=== PATIENT | female | born 1990 | race Caucasian/White ===

== ENCOUNTER → 2021-05-28 | Outpatient (CLI) | payer BC ==
[2021-05-28 08:15] LABS: BASO % 0 % (0-3); EOS # 0.1 x10^3/uL (0.0-0.7); EOS % 1 % (0-3); HEMOGLOBIN 11.9 g/dL (12.0-15.5); LYMPH # 2.5 x10^3/uL (1.0-4.8); LYMPH % 36 % (24-48); MEAN CORPUSCULAR HEMOGLOBIN 29 pg (25-35); MEAN CORPUSCULAR HGB CONC 34 g/dL (31-37); MEAN CORPUSCULAR VOLUME 87 fL (79-100); MONO # 0.5 x10^3/uL (0.0-1.1); MONO % 8 % (0-9); NEUT # 3.8 x10^3/uL (1.8-7.7); NEUT % 55 % (31-73); PLATELET COUNT 222 x10^3/uL (140-400); RED BLOOD COUNT 4.05 x10^6/uL (3.50-5.40); RED CELL DISTRIBUTION WIDTH 14.7 % (11.5-14.5); WHITE BLOOD COUNT 6.9 x10^3/uL (4.0-11.0)
--- NOTE | 2021-05-28 09:52 | RAD ---
US OB <14 WKS +TV History: Reason: UNSURE DATES / Spl. Instructions: / History: Comparison: None. Technique: Grayscale and color Doppler imaging of the pelvis was performed using transabdominal techn ique. Findings: The uterus measures 16 x 11 x 8 cm. Single acute or gestational sac with regular appearance. Yolk sac is not identified. pole is id entified with crown-rump length 6.4 cm. Adjustment gestational age by ultrasound 12 weeks 5 days. Fet al heart rate 153 bpm. Estimated date of delivery by ultrasound December 05, 2021 Right ovary measures 3.1 x 2.3 x 2.1 cm. Left ovary measures 3.1 x 1.9 x 2.1 cm. Normal Doppler flow to the ovaries bilaterally. No adnexal masses are seen. IMPRESSION: 1. Single intrauterine with gestational age 12 weeks 5 days and heart rate 153 bpm. Recommend routine anatomic screening at 18-22 weeks. Electronically signed by: Issa Scott DO (05/28/2021 9:50 AM) [id number]
[2021-05-29 23:07] LABS: RUBELLA IGG ANTIBODY 0.92 index (Immune >0.99)
== END ==
LOC: US 07:05
PROVIDERS: ATTEND Obstetrics & Gynecology
DX: Z34.91 Encounter for supervision of normal pregnancy, unspecified, first trimester (principal); Z3A.12 12 weeks gestation of pregnancy
CPT/HCPCS: 36415; 76801; 85025; 85660; 86592; 86703; 86762; 86787; 86803; 86850; 86900; 86901; 87340